=== PATIENT | female | born 1935 | race Caucasian/White ===

== ENCOUNTER 2019-01-18 02:03 | Inpatient (IN) | payer MEDICARE, OTHER ==
[~2019-01-18] VITALS: Ht 172.7 cm; Wt 70.5 kg
[2019-01-18] MEDS ORDERED: SODIUM CHLORIDE 0.9% 500 ML IV ONE (02:45)
[2019-01-18 03:12] LABS: Albumin 3.2 g/dL (3.4-5.0); Anion Gap 8 (5-15); BUN/Creatinine Ratio 12.5; Blood Urea Nitrogen 8 mg/dL (7-18); Calcium 8.3 mg/dL (8.5-10.1); Carbon Dioxide 26 mmol/L (21-32); Chloride 110 mmol/L (98-107); GFR African American 114 mL/min; GFR Non-African American 94 mL/min; Glucose 92 mg/dL (74-106); Potassium 3.5 mmol/L (3.5-5.1); Sodium 144 mmol/L (136-145)
[2019-01-18 03:17] LABS: Alanine Aminotransferase 12 U/L (13-56); Alkaline Phosphatase 57 U/L (45-117); Aspartate Aminotransferase 12 U/L (15-37); Bilirubin, Total 0.7 mg/dL (0.2-1.0); Total Protein 6.5 g/dL (6.4-8.2)
[2019-01-18 03:20] LABS: INR 0.96 (0.9-1.15); Partial Thromboplastin Time 24.6 sec (23.64-32.05)
[2019-01-18 03:48] LABS: Basophils # (auto) 0.1 uL; Basophils % (auto) 2.2 % (0.0-2.0); Eosinophils # (auto) 0.1 uL; Hematocrit 38.3 % (36.0-46.0); Hemoglobin 12.9 g/dL (12.2-16.2); Lymphocytes # (auto) 1.2 uL; Lymphocytes % (auto) 30.4 % (10.0-50.0); Mean Corpuscular Hemoglobin 33.6 pg (28.0-32.0); Mean Corpuscular Hgb Conc. 33.6 g/dL (32.0-36.0); Mean Corpuscular Volume 100.1 fL (80.0-100.0); Monocytes # (auto) 0.2 uL; Monocytes % (auto) 5.8 % (0.0-12.0); Neutrophils # (auto) 2.3 uL; Neutrophils % (auto) 58.6 % (37.0-80.0); Nucleated Red Blood Cells % 0.1 %; Platelet Count (auto) 180 10^3/uL (140-450); Red Blood Cells 3.83 10^6/uL (4.0-5.20); Red Cell Distribution Width 13.5 % (11.8-14.3)
[2019-01-18 05:48] LABS: Urine WBC None Seen /hpf (0 - 5)
[2019-01-18 06:13] LABS: Urine Bacteria MANY /hpf (None Seen); Urine Blood TRACE /uL (Negative); Urine Specific Gravity 1.006 (1.001-1.035)
[2019-01-18] MEDS ORDERED: SODIUM CHLORIDE 0.9% 1,000 ML IV ONE (11:45)
[2019-01-18] MEDS ORDERED: hydrALAZINE HCL 20 MG/ML VL IV PRN (11:45)
[2019-01-18] MEDS ORDERED: NEBI5TAB2 PO (12:00)
[2019-01-18] MEDS ORDERED: NITROGLYCERIN 0.4 MG SL TAB SL PRN (12:15)
[2019-01-18] MEDS ORDERED: MORPHINE SULF INJ 2 MG/ML SYRINGE 1ML IV PRN (12:15)
[2019-01-18] MEDS ORDERED: NICOTINE 14 MG/24HR TOPICAL PATCH TD PRN (12:15)
--- NOTE | 2019-01-18 13:00 | NUR ---
Telemetry admit from [facility] admitted to Telemetry unit after SBAR received. Patient oriented to LEENA FRANKLIN, RN primary RN, unit, room, bed, and unit policies regarding patient care and visiting hours. Patient now on continuous telemetry monitoring, tele box #15 and telemetry reading on arrival to unit is V-Paced 100% captured with a rate of 70 bpm. Patient placed on bedside oxygen, weighed by bed scale and encouraged to call if they need something. All questions and concerns addressed, patient verbalized understanding.
--- NOTE | 2019-01-18 13:30 | NUR ---
Shi Peralta, Vision Impaired Teacher BU[employer] INTERN, at bedside to consult patient.
--- NOTE | 2019-01-18 16:00 | NUR ---
Patient refused brain MRI. Notified Physician, Dr. Karmen Rod.
[2019-01-18 17:00] VITALS: BP 139/68
--- NOTE | 2019-01-18 19:45 | NUR ---
OPENING SHIFT NOTE Assumed care of patient. A&O x4, denies pain at this time. Currently on room air with no S/S of SOB or distress. POC discussed with patient who verbalizes understanding. Bed is in low locked position with side ails up x2. Patient is able to ambulate to bedside commode with assistance due to severe dizziness. Encouraged to call for assistance if needed. Bed alarm on due to high fall risk. Will continue to monitor PRN.
[2019-01-18 20:00] VITALS: BP 93/72
[2019-01-18 21:26] VITALS: BP 93/72
[2019-01-18 21:27] VITALS: BP_SYST 110; BP_SYST 95; BP_DIAS 44; BP_DIAS 57
[2019-01-18] MEDS ORDERED: ATORVASTATIN 20 MG TAB PO SCH (22:00)
--- NOTE | 2019-01-18 23:19 | NUR ---
ORTHOSTATIC BLOOD PRESSURE Lyin/72 heart rate: 67 sittin/44 heart rate: 69 Standin/57 heart rate: 77
--- NOTE | 2019-01-19 00:40 | NUR ---
BLOOD PRESSURE RECHECK Blood pressure rechecked with patient in a laying position and is 122/54, heart rate is 58.
[2019-01-19 05:10] VITALS: BP 120/71
[2019-01-19 05:59] LABS: Basophils # (auto) 0.1 uL; Eosinophils # (auto) 0.1 uL; Monocytes # (auto) 0.3 uL; White Blood Cell 4.6 10^3/uL (4.4-10.8)
--- NOTE | 2019-01-19 06:00 | NUR ---
Patients heart rate on equipment monitor phototypesetting is sinus ayan at 47. Patient is awake in bed A&O x4. C/O mild weakness. Patient sat up in bed. V/S are as follows- Temp: 97.4, RR: 18, Hr: 53, BP: 120/71, Spo2: 96% on room air. It is noted that patient has been sinus ayan in the 50s throughout the night and MD is aware. Will continue to monitor heart rate.
[2019-01-19 06:01] LABS: Basophils % (auto) 1.3 % (0.0-2.0); Eosinophils % (auto) 2.9 % (0.0-7.0); Hematocrit 37.8 % (36.0-46.0); Hemoglobin 12.9 g/dL (12.2-16.2); Lymphocytes # (auto) 1.9 uL; Lymphocytes % (auto) 40.4 % (10.0-50.0); Mean Corpuscular Hemoglobin 34.2 pg (28.0-32.0); Mean Corpuscular Hgb Conc. 34.2 g/dL (32.0-36.0); Mean Corpuscular Volume 100.1 fL (80.0-100.0); Monocytes % (auto) 6.1 % (0.0-12.0); Neutrophils # (auto) 2.3 uL; Neutrophils % (auto) 49.3 % (37.0-80.0); Platelet Count (auto) 171 10^3/uL (140-450); Red Blood Cells 3.77 10^6/uL (4.0-5.20); Red Cell Distribution Width 13.3 % (11.8-14.3)
[2019-01-19 06:19] LABS: Calcium 8.6 mg/dL (8.5-10.1); Potassium 3.7 mmol/L (3.5-5.1)
[2019-01-19 06:21] LABS: BUN/Creatinine Ratio 15.4
--- NOTE | 2019-01-19 07:02 | NUR ---
CLOSING NOTE Care endorsed to day shift nurse. Patient is out of bed, with S/S of pain or distress at this time. Heart rhythm/rate is currently sinus ayan at 52.
--- NOTE | 2019-01-19 07:30 | NUR ---
Opening Shift Note RECEIVED REPORT FROM NOC RN. Assumed care of patient, awake and alert. No S/S of distress/SOB or pain. BED IN LOWEST, LOCKED POSITION WITH SIDERAILS UP x2. Instructed on POC and to call for assist PRN, will continue to monitor for changes Q1hr and PRN.
[2019-01-19 08:05] VITALS: BP 132/56
[2019-01-19 09:24] VITALS: BP 132/56
[2019-01-19] MEDS ORDERED: ASPirin-EC 81 mg tab PO SCH (10:00)
[2019-01-19] MEDS ORDERED: NICOTINE 14 MG/24HR TOPICAL PATCH TD PRN (13:00)
[2019-01-19 15:31] VITALS: BP 99/65
--- NOTE | 2019-01-19 15:50 | NUR ---
DR. Karmen MORALES AT BEDSIDE. REQUESTING DISCHARGE CLEARANCE FROM DR. CARTER AND DR. LÓPEZ. CLEARANCE REQUESTS PLACED THROUGH PBX.
[2019-01-19] MEDS ORDERED: ATOR20TA50 PO (16:30)
[2019-01-19] MEDS ORDERED: ASP81EC PO (16:30)
--- NOTE | 2019-01-19 16:30 | NUR ---
DR. CARTER RETURNED PAGE. ADVISED PATIENT IS CLEARED IF HEART RATE AND BLOOD PRESSURE ARE STABLE. INFORMATION PASSED ON TO DR. Karmen MORALES.
[2019-01-19 19:29] VITALS: BP 148/65
--- NOTE | 2019-01-19 19:50 | NUR ---
Discharge instructions given by am shift RN as ordered. Encourage to follow up with PMD as instructed. All questions and concerns addressed. Patient verbalized understanding. Medication reconciliation form completed and copy given to patient. IV removed with catheter intact, pressure dressing applied. Telemetry unit returned to [facility]. Patient taken to vehicle via wheelchair with all personal belongings, accompanied by staff and friend. No distress noted at time of departure.
== END 2019-01-19 19:50 | disposition home or self-care (01) | DRG 149 ==
LOC: EDBD 02:03 → ER 02:06 → TELE 02:07 → TELE-WESTW 13:01
PROVIDERS: ADMIT Internal Medicine; ATTEND Internal Medicine
DX: R42 Dizziness and giddiness (principal); I42.9 Cardiomyopathy, unspecified; R00.1 Bradycardia, unspecified; R55 Syncope and collapse; I10 Essential (primary) hypertension; J44.9 Chronic obstructive pulmonary disease, unspecified; I08.3 Combined rheumatic disorders of mitral, aortic and tricuspid valves; F40.240 Claustrophobia; F41.9 Anxiety disorder, unspecified; F17.210 Nicotine dependence, cigarettes, uncomplicated; Z53.20 Procedure and treatment not carried out because of patient's decision for unspecified reasons; Z79.82 Long term (current) use of aspirin; Z79.899 Other long term (current) drug therapy; Z86.73 Personal history of transient ischemic attack (TIA), and cerebral infarction without residual deficits; Z90.710 Acquired absence of both cervix and uterus; Z88.0 Allergy status to penicillin; Z88.5 Allergy status to narcotic agent; Z88.8 Allergy status to other drugs, medicaments and biological substances; Z91.041 Radiographic dye allergy status
CPT/HCPCS: 36415; 70450; 71045; 80048; 80053; 80061; 81001; 83880; 84443; 84484; 85025; 85610; 85730; 93005; 93306; 93886; 94761; 96360; G0378

== ENCOUNTER 2020-03-14 13:22 | Emergency (ER) | payer OTHER ==
[~2020-03-14] VITALS: Ht 154.9 cm; Wt 67.1 kg
[~2020-03-14 13:22] MED LIST: ASPI-394 PO; ATOR20TA50 PO
[2020-03-14 15:25] LABS: Basophils # (auto) 0.1 10 ^3/uL (0-0.2); Basophils % (auto) 0.9 % (0.0-2.0); Eosinophils # (auto) 0.1 10 ^3/uL (0-0.8); Eosinophils % (auto) 1.8 % (0.0-7.0); Hematocrit 41.6 % (36.0-46.0); Lymphocytes # (auto) 1.1 10 ^3/uL (0.4-5.4); Lymphocytes % (auto) 19.9 % (10.0-50.0); Mean Corpuscular Hgb Conc. 33.6 g/dL (32.0-36.0); Mean Corpuscular Volume 98.3 fL (80.0-100.0); Monocytes # (auto) 0.3 10 ^3/uL (0-1.3); Monocytes % (auto) 5.5 % (0.0-12.0); Neutrophils % (auto) 71.9 % (37.0-80.0); Platelet Count (auto) 199 10^3/uL (140-450); Red Blood Cells 4.23 10^6/uL (4.0-5.20); Red Cell Distribution Width 13.4 % (11.8-14.3); White Blood Cell 5.6 10^3/uL (4.4-10.8)
[2020-03-14] MEDS ORDERED: SODIUM CHLORIDE 0.9% 1,000 ML IVB ONE (15:36)
[2020-03-14 15:42] LABS: Albumin 3.8 g/dL (3.4-5.0); Calcium 8.8 mg/dL (8.5-10.1); Potassium 3.7 mmol/L (3.5-5.1)
[2020-03-14 15:45] LABS: BUN/Creatinine Ratio 17.6; Bilirubin, Total 0.4 mg/dL (0.2-1.0); Total Protein 6.7 g/dL (6.4-8.2)
[2020-03-14 16:24] LABS: Magnesium 2.3 mg/dL (1.6-2.6)
[2020-03-14 16:31] LABS: INR 0.97 (0.9-1.15); Partial Thromboplastin Time 24.7 sec (23.0-31.2)
[2020-03-14 17:04] LABS: Urine Bacteria FEW /hpf (None Seen); Urine Blood 1+ /uL (Negative); Urine Mucus FEW (None Seen); Urine Specific Gravity 1.011 (1.001-1.035); Urine WBC 82 /hpf (0 - 5)
[2020-03-14 17:30] VITALS: BP 135/72
[2020-03-14] MEDS ORDERED: cefTRIAXone 1GM/50ML D5W 50 ML IV ONE (17:30)
== END 2020-03-14 18:43 | disposition home or self-care (01) ==
LOC: EDBD 13:22 → ER 13:22 → EDUNIT# 13:22 → ER 18:43
DX: N30.00 Acute cystitis without hematuria (principal); D35.02 Benign neoplasm of left adrenal gland; J44.9 Chronic obstructive pulmonary disease, unspecified; E78.5 Hyperlipidemia, unspecified; I10 Essential (primary) hypertension; F17.210 Nicotine dependence, cigarettes, uncomplicated; Z88.0 Allergy status to penicillin; Z88.8 Allergy status to other drugs, medicaments and biological substances; Z91.041 Radiographic dye allergy status
CPT/HCPCS: 36415; 71045; 74176; 80053; 81001; 82150; 83690; 83735; 85025; 85610; 85730; 93005; 96365; 99285; J0696